=== PATIENT | male | born 1950 | race Caucasian/White ===

== ENCOUNTER 2021-02-28 12:26 | Outpatient (CLI) | payer MEDICARE, BC ==
[2021-02-28 14:33] LABS: #Eosinphils 0.3 10x3/uL (0.0-0.5); %Basophils 0.4 % (0.0-2.0); %Eosinophils 3.5 % (0.0-6.0); %Monocytes 10.6 % (0.0-10.0); %Neutrophils 64.3 % (40.0-75.0); Hemoglobin 14.2 g/dL (13.5-17.5); Mean Corpuscular HGB CONC 33.7 g/dL (32.0-36.0); Mean Corpuscular Hemoglobin 30.2 pg (27.0-33.0); Mean Corpuscular Volume 89.6 fl (81.2-95.1); Mean Platelet Volume 9.6 fl (7.4-10.4); Platelet Count 287 10x3/uL (150-450); RBC Distribution Width 13.8 % (11.5-14.5); White Blood Cell (WBC) Count 9.4 10x3/uL (3.5-10.5)
[2021-02-28 15:30] LABS: Anion Gap 15 mmol/L (10-20); BUN (Urea Nitrogen) 29 mg/dL (8.4-25.7); Calc. Creatinine Clearance 0 mL/min (70-130); Calcium 9.2 mg/dL (7.8-10.44); Carbon Dioxide 25 mmol/L (23-31); Chloride 104 mmol/L (98-107); Glucose 99 mg/dL (80-115); Potassium 4.6 mmol/L (3.5-5.1); Sodium 139 mmol/L (136-145)
[2021-02-28 20:29] LABS: SARS-CoV-2 PCR by NAA Not Detected (NotDetected)
== END 2021-02-28 12:27 | disposition home or self-care (01) ==
LOC: LABBT 12:26
PROVIDERS: ATTEND Internal Medicine Cardiovascular Disease
DX: Z01.812 Encounter for preprocedural laboratory examination (principal); Z20.822 Contact with and (suspected) exposure to COVID-19
CPT/HCPCS: 80048; 85025; U0003; U0005

== ENCOUNTER 2021-03-03 10:04 | Day surgery (SDC) | payer MEDICARE, BC ==
[2021-03-01 14:32] VITALS: BMI 32.8
[2021-03-03] MEDS ORDERED: Lidocaine 1% PF 5 ML VIAL ONE (12:53)
[2021-03-03] MEDS ORDERED: PROPOFOL 200 MG/20 ML VIAL ONE (12:53)
== END 2021-03-03 14:05 | disposition home or self-care (01) ==
LOC: SDC 10:04
PROVIDERS: ATTEND Internal Medicine Cardiovascular Disease
PROC: B246ZZ4 Ultrasonography of Right and Left Heart, Transesophageal (ICD-10-PCS; principal; 2021-03-03)
PROC: 5A2204Z Restoration of Cardiac Rhythm, Single (ICD-10-PCS; 2021-03-03)
DX: I48.0 Paroxysmal atrial fibrillation (principal); I11.9 Hypertensive heart disease without heart failure; I08.3 Combined rheumatic disorders of mitral, aortic and tricuspid valves; E78.2 Mixed hyperlipidemia; K21.9 Gastro-esophageal reflux disease without esophagitis; I87.2 Venous insufficiency (chronic) (peripheral); R73.9 Hyperglycemia, unspecified; E66.9 Obesity, unspecified; Z68.32 Body mass index [BMI] 32.0-32.9, adult; Z79.01 Long term (current) use of anticoagulants; Z79.899 Other long term (current) drug therapy
CPT/HCPCS: 92960; 93005; 93010; 93312; J2704

== ENCOUNTER 2021-08-17 08:22 | Outpatient (CLI) | payer MEDICARE, BC ==
[2021-08-17 10:02] LABS: Hemoglobin 14.8 g/dL (13.5-17.5); Mean Corpuscular HGB CONC 33.1 g/dL (32.0-36.0); Mean Corpuscular Hemoglobin 30.3 pg (27.0-33.0); Mean Corpuscular Volume 91.4 fl (81.2-95.1); Mean Platelet Volume 9.4 fl (7.4-10.4); Platelet Count 315 10x3/uL (150-450); RBC Distribution Width 13.9 % (11.5-14.5); Red Blood Cell (RBC) Count 4.89 10x6/uL (4.32-5.72); White Blood Cell (WBC) Count 5.8 10x3/uL (3.5-10.5)
[2021-08-17 10:19] LABS: PTT 27.3 sec (22.0-33.0); Prothrombin Time 10.9 sec (9.5-12.1)
[2021-08-17 10:26] LABS: Anion Gap 13 mmol/L (10-20); BUN (Urea Nitrogen) 24 mg/dL (8.4-25.7); Calc. Creatinine Clearance 0 mL/min (70-130); Calcium 9.7 mg/dL (7.8-10.44); Carbon Dioxide 30 mmol/L (23-31); Chloride 99 mmol/L (98-107); Glucose 99 mg/dL (80-115); Potassium 4.6 mmol/L (3.5-5.1); Sodium 137 mmol/L (136-145)
[2021-08-17 21:41] LABS: SARS-CoV-2 PCR by NAA Not Detected (NotDetected)
== END 2021-08-17 08:23 | disposition home or self-care (01) ==
LOC: LABBT 08:22
PROVIDERS: ATTEND Internal Medicine Cardiovascular Disease
DX: Z01.812 Encounter for preprocedural laboratory examination (principal); Z20.822 Contact with and (suspected) exposure to COVID-19
CPT/HCPCS: 80048; 85027; 85610; 85730; U0003; U0005

== ENCOUNTER 2021-08-22 08:23 | Day surgery (SDC) | payer MEDICARE, BC ==
[2021-08-17 11:49] VITALS: BMI 31.4
[2021-08-22] MEDS ORDERED: Isoproterenol 0.2 MG/1 ML AMP ONE (08:37)
[2021-08-22] MEDS ORDERED: Heparin 10,000 UNITS/ 10 ML VIAL ONE (08:37)
[2021-08-22] MEDS ORDERED: Protamine Sulfate 50 MG/5 ML VIAL ONE (08:37)
[2021-08-22] MEDS ORDERED: Heparin 25,000 units/D5W 500 ML ONE (08:37)
[2021-08-22] MEDS ORDERED: Fentanyl 100 MCG/2 ML VIAL ONE (09:27)
[2021-08-22] MEDS ORDERED: PROPOFOL 200 MG/20 ML VIAL ONE (10:43)
[2021-08-22] MEDS ORDERED: Rocuronium Bromide 10 MG/ML (10ML VIAL) ONE (10:43)
[2021-08-22] MEDS ORDERED: PHENYLEPHRINE-NS 100 MCG/ML 10 ML SYRINGE ONE (10:43)
[2021-08-22] MEDS ORDERED: Lidocaine 1% PF 5 ML VIAL ONE (10:43)
[2021-08-22] MEDS ORDERED: Ondansetron PF 4 MG/2 ML Vial ONE (10:43)
[2021-08-22] MEDS ORDERED: Phenylephrine 10 MG/ML VIAL ONE (14:03)
== END 2021-08-22 19:42 | disposition home or self-care (01) ==
LOC: SDC 08:23
PROVIDERS: ATTEND Internal Medicine Cardiovascular Disease
PROC: 02583ZZ Destruction of Conduction Mechanism, Percutaneous Approach (ICD-10-PCS; principal; 2021-08-22)
PROC: 02K83ZZ Map Conduction Mechanism, Percutaneous Approach (ICD-10-PCS; 2021-08-22)
PROC: 4A023FZ Measurement of Cardiac Rhythm, Percutaneous Approach (ICD-10-PCS; 2021-08-22)
PROC: 4A0234Z Measurement of Cardiac Electrical Activity, Percutaneous Approach (ICD-10-PCS; 2021-08-22)
DX: I48.19 Other persistent atrial fibrillation (principal); I48.92 Unspecified atrial flutter; I11.9 Hypertensive heart disease without heart failure; I08.8 Other rheumatic multiple valve diseases; K21.9 Gastro-esophageal reflux disease without esophagitis; E78.5 Hyperlipidemia, unspecified; E66.9 Obesity, unspecified; Z68.31 Body mass index [BMI] 31.0-31.9, adult; Z79.01 Long term (current) use of anticoagulants; Z79.899 Other long term (current) drug therapy
CPT/HCPCS: 85347 ×2; 93005; 93613; 93623; 93655; 93656; 93657; 93662; C1732 ×2; C1759; C1760; J1644; J2370; J2405; J2704; J2720; J3010

== ENCOUNTER 2021-09-29 13:40 | Outpatient (CLI) | payer MEDICARE, BC | END 2021-09-29 13:41 | disposition home or self-care (01) | LOC: LABBT 13:40 | PROVIDERS: ATTEND Internal Medicine Cardiovascular Disease | DX: Z01.818 Encounter for other preprocedural examination (principal); Z20.822 Contact with and (suspected) exposure to COVID-19 | CPT/HCPCS: 93005; U0003; U0005; 93010 ==

== ENCOUNTER 2021-10-03 05:58 | Day surgery (SDC) | payer MEDICARE, BC ==
[2021-09-30 09:18] VITALS: BMI 31.4
[2021-10-03] MEDS ORDERED: PROPOFOL 200 MG/20 ML VIAL ONE (08:52)
== END 2021-10-03 09:57 | disposition home or self-care (01) ==
LOC: SDC 05:58
PROVIDERS: ATTEND Internal Medicine Cardiovascular Disease
PROC: 5A2204Z Restoration of Cardiac Rhythm, Single (ICD-10-PCS; principal; 2021-10-03)
DX: I48.92 Unspecified atrial flutter (principal); I10 Essential (primary) hypertension; E78.2 Mixed hyperlipidemia; K21.9 Gastro-esophageal reflux disease without esophagitis; R73.9 Hyperglycemia, unspecified; I87.2 Venous insufficiency (chronic) (peripheral); E66.9 Obesity, unspecified; Z68.31 Body mass index [BMI] 31.0-31.9, adult; Z79.01 Long term (current) use of anticoagulants; Z79.899 Other long term (current) drug therapy; Z98.890 Other specified postprocedural states
CPT/HCPCS: 92960; 93005; 93010; J2704

== ENCOUNTER 2022-12-13 06:19 | Day surgery (SDC) | payer MEDICARE, BC ==
[2022-12-12 12:29] VITALS: BMI 30.7
[2022-12-13] MEDS ORDERED: Isoproterenol 0.2 MG/1 ML AMP ONE (06:39)
[2022-12-13] MEDS ORDERED: Heparin 25,000 units/D5W 500 ML ONE (06:39)
[2022-12-13] MEDS ORDERED: Heparin 10,000 UNITS/ 10 ML VIAL ONE (06:39)
[2022-12-13] MEDS ORDERED: Protamine Sulfate 50 MG/5 ML VIAL ONE ×2 (06:39→13:08)
[2022-12-13 07:14] LABS: Hematocrit 41.6 % (42.0-52.0); Mean Corpuscular HGB CONC 33.7 g/dL (32.0-36.0); Mean Corpuscular Hemoglobin 30.8 pg (27.0-31.0); Mean Corpuscular Volume 91.6 fl (78.0-98.0); Mean Platelet Volume 9.1 fL (7.4-10.4); Platelet Count 237 10x3/uL (130-400); RBC Distribution Width 13.5 % (11.5-14.5); Red Blood Cell (RBC) Count 4.54 mill/uL (4.70-6.10); White Blood Cell (WBC) Count 7.4 10x3/uL (4.8-10.8)
[2022-12-13] MEDS ORDERED: fentaNYL PF 100 MCG/2 ML SYRINGE ONE (07:16)
[2022-12-13 07:34] LABS: Anion Gap 14 mmol/L (10-20); BUN (Urea Nitrogen) 27 mg/dL (8.4-25.7); Calc. Creatinine Clearance 104 mL/min (70-130); Calcium 9.5 mg/dL (7.8-10.44); Carbon Dioxide 26 mmol/L (23-31); Chloride 102 mmol/L (98-107); Estimated GFR 88; Glucose 107 mg/dL (80-115); Potassium 3.7 mmol/L (3.5-5.1); Sodium 138 mmol/L (136-145)
[2022-12-13] MEDS ORDERED: Ondansetron PF 4 MG/2 ML Vial ONE (08:11)
[2022-12-13] MEDS ORDERED: ePHEDrine Sulfate 50 MG/10 ML VIAL ONE (08:11)
[2022-12-13] MEDS ORDERED: Rocuronium Bromide 10 MG/ML (10ML VIAL) ONE (08:11)
[2022-12-13] MEDS ORDERED: PROPOFOL 200 MG/20 ML VIAL ONE (08:11)
[2022-12-13] MEDS ORDERED: PHENYLEPHRINE-NS 100 MCG/ML 10 ML SYRINGE ONE (08:11)
[2022-12-13] MEDS ORDERED: Amiodarone 150 MG/3 ML VIAL ONE (11:45)
[2022-12-13] MEDS ORDERED: Ondansetron HCl/PF 4 MG/2 ML Vial IVP PRN (13:40)
[2022-12-13] MEDS ORDERED: HYDROmorphone 2 MG/ML VIAL SLOW IVP PRN (13:40)
[2022-12-13] MEDS ORDERED: Promethazine HCl 25 MG/ML VIAL IM PRN (13:40)
== END 2022-12-13 17:25 | disposition home or self-care (01) ==
LOC: SDC 06:19
PROVIDERS: ATTEND Internal Medicine Cardiovascular Disease
DX: I48.19 Other persistent atrial fibrillation (principal); I48.92 Unspecified atrial flutter
CPT/HCPCS: 80048; 85027; 85347 ×2; 93005; 93622; 93623; 93655; 93656; 93657; C1732; C1760; C1894; C1759; C1884; J0282; J1644; J2405; J2704; J2720